=== PATIENT | male | born 1990 | race Caucasian/White ===

== ENCOUNTER 2024-12-17 11:07 | Inpatient (IN) | payer OTHER, SELFPAY ==
[2024-12-17 11:15] VITALS: BP 142/80; PULSE 110; O2SAT 98; BMI 26.6
[2024-12-17 11:21] VITALS: BP 141/90; PULSE 91; RESP 16; TEMP 36.6; O2SAT 98
--- NOTE | 2024-12-17 11:37 | ED_ITS ---
HPI - Psych General Chief Complaint: Psychiatric Symptoms Stated Complaint: LEG AND FOOT PAIN Time Seen by Provider: 12/17/24 11:14 Source: patient and EMS Mode of arrival: ambulatory Limitations: no limitations History of Present Illness ED Provider: CAITLIN Alves HPI Narrative: This is a 34-year-old male past medical history significant for homelessness, substance abuse, depression recently discharged from a facility out near [place] on a [address] 12 for a month he tells me. He tells me that they sent him via Lyft to [facility] here in [place] however they did not let him inside because I was not a staff member. He tells me he is suicidal with no particular plan. No homicidal ideation. Denies visual, auditory and tactile hallucinations. Denies medical complaints at this time. Related Data Home Medications ?Medication ?Instructions ?Recorded ?Confirmed methadone 10 mg/mL oral 100 mg PO DAILY 12/17/24 concentrate (Methadone Intensol) Allergies Allergy/AdvReac Type Severity Reaction Status Date / Time bupropion (From Wellbutrin) AdvReac Agitated Verified 12/17/24 11:20 olanzapine (From Zyprexa) AdvReac Agitated Verified 12/17/24 11:20 Review of Systems 2 Review of Systems: Yes all other systems are reviewed and are negative [facility] Past Medical History Attestation statement: The following information was validated with the patient. Source: old records reviewed and nursing notes reviewed Social History Social History Smoked in Last 30 Days: Yes Substance Use Type: Heroin Advance Directives: No Advance Directives Information Provided: No Physical Exam 2 Exam: Exam: Appearance: Alert.? Oriented X3.? No acute distress.? Head: Normocephalic, atraumatic, no step-offs or deformities Eyes: Pupils equal, round and reactive to light.? ENT: Pharynx normal.? Neck: Normal inspection.? Neck supple.? CVS: Normal heart rate and rhythm.? Pulses normal.? Respiratory: No respiratory distress.? Breath sounds normal.? Abdomen: Soft and nontender.? Skin: Skin warm and dry.? Normal skin color.? Normal skin turgor.? Extremities: No lower extremity edema.? No calf ttp. 5/5 strength to bilateral upper and lower extremities Back: No midline tenderness, no C-spine tenderness, full range of motion, no CVA tenderness bilaterally Neuro: Oriented X 3.? No motor deficit.? No sensory deficit. CN 2-12 intact Vital Signs: Vital Signs: Last Vital Signs Temp 98.7 F 12/19/24 08:30 Pulse 62 12/19/24 08:30 Resp 12 12/19/24 08:30 BP 109/56 L 12/19/24 08:30 Pulse Ox 99 12/19/24 08:30 O2 Del Method Room Air 12/19/24 08:30 BMI result Body Mass Index 26.6 vss Course Reevaluation(s) Reevaluation #1: CBC with normocytic anemia. Chemistry with mild elevation in BUN and creatinine will offer him p.o. intake no indication for IV at this time. Normal urinary output. Ethanol negative. Urine toxicology and UA pending. At this time patient will be placed into physician observation to allow more time to be evaluated by the behavioral health team at time observation was started patient common cooperative no acute distress will continue Time: 15:51 Reevaluation #2: Time: 16:32 Date: 12/17/24 Provider: Jesus Valles DO Patient in physician observation for psychiatric evaluation.? Patient is in bed search status. Time: 16:31 Reevaluation #3: DR. Garcia's progress note 12/18/2024 9:00. VSS, calm, continue with section 12, bed search is underway, will continue with physician observation. Time: 08:55 Date: 12/19/24 Provider: CAITLIN Dubose Patient in physician observation for psychiatric evaluation.? No acute events reported overnight. No current complaints. VS stable.? Patient is in bed search status. Will continue to monitor. Time: 09:00 Additional Reevaluation(s): Time: 14:58 Date: 12/19/24 Provider: Caro Tijerina DO Physician observation ended at 258pm.Patient to be admitted as inpatient to psychiatry. Medications Administered Generic Name Dose Route Start Last Admin Trade Name Freq PRN Reason Stop Dose Admin Acetaminophen 975 mg 12/18/24 17:43 12/19/24 12:10 Acetaminophen 325 Mg Tablet PO 975 mg RQ6H PRN Administration Pain, Moderate(Pain Scale 4-6) Docusate Sodium 100 mg 12/18/24 04:54 12/19/24 05:31 Docusate Sodium 100 Mg Capsule PO 100 mg BID PRN Administration Constipation Senna 8.6 mg 12/18/24 04:54 12/19/24 05:31 Sennosides 8.6 Mg Tablet PO 8.6 mg DAILY PRN Administration Constipation Discontinued Medications Generic Name Dose Route Start Last Admin Trade Name Chan PRN Reason Stop Dose Admin Acetaminophen 975 mg 12/18/24 00:37 12/18/24 00:39 Acetaminophen 325 Mg Tablet PO 12/18/24 00:38 975 mg ONCE ONE Administration Acetaminophen 650 mg 12/18/24 11:31 12/18/24 12:30 Acetaminophen 325 Mg Tablet PO 12/18/24 11:32 650 mg ONCE ONE Administration Diazepam 5 mg 12/18/24 04:54 12/18/24 05:15 Diazepam 5 Mg Tablet PO 12/18/24 04:55 5 mg ONCE ONE Administration Melatonin 6 mg 12/19/24 02:36 12/19/24 02:50 Melatonin 3 Mg Tablet PO 12/19/24 02:37 6 mg ONCE ONE Administration Methadone HCl 100 mg 12/18/24 07:09 12/18/24 07:38 Methadone Hcl 20 Mg/2 Ml Oral.Conc PO 12/18/24 07:10 100 mg ONCE ONE Administration Methadone HCl 100 mg 12/19/24 08:50 12/19/24 09:57 Methadone Hcl 20 Mg/2 Ml Oral.Conc PO 12/19/24 08:51 100 mg ONCE ONE Administration Medical Decision Making Medical Decision Making [facility] Narrative: 1139 34-year-old male presents with suicidal ideation recently discharged from an inpatient program out near [place]. He tells me he is here for correction and food . on exam patient with a very bizarre affect. Otherwise benign history and physical exam concerning for acute psychiatric issue such as psychosis drug-induced psychosis, depression. Unlikely metabolic derangements although will rule out. No signs of trauma to head, neck, chest, abdomen or pelvis plan medical clearance evaluation by behavioral health Differential Diagnosis Differential Diagnoses: The differential diagnosis associated with the presentation includes ( history and physical exam concerning for acute psychiatric issue such as psychosis drug-induced psychosis, depression. Unlikely metabolic derangements although will rule out. No signs of trauma to head, neck, chest, abdomen or pelvis) Admission/Observation Consideration of admission/observation: Escalation of care including admission/observation considered Consult Healthcare Provider Management of the patient was discussed with: Behavioral Health Provider Lab Data [facility] Lab Attestation statement: I reviewed the patient's lab results. 12/17/24 13:26 12/17/24 13:26 Labs: Lab Results 12/17/24 12/17/24 Range/Units 13:26 15:40 WBC 9.6 (4.8-10.8) X10*3/uL RBC 4.62 (4.60-5.80) X10*6/uL Hgb 13.5 L (14.0-18.0) g/dl Hct 39.8 L (42.0-52.0) % MCV 86.1 (80.0-98.0) fL MCH 29.2 (27.0-33.0) pg MCHC 33.9 (31.0-36.0) g/dl RDW 13.0 (11.0-16.0) % Plt Count 215 (160-400) X10*3/uL MPV 10.1 (9.4-12.4) fL Immature Gran % (Auto) 0.4 (0.0-0.4) % Neut % (Auto) 85.1 H (45-73) % Lymph % (Auto) 8.9 L (20-40) % [place] % (Auto) 5.4 (2-11) % Eos % (Auto) 0.0 (0-4) % Baso % (Auto) 0.2 (0-2) % Lymph # (Auto) 0.9 L (1.2-4.9) X10*3/uL [place] # (Auto) 0.5 (0.1-1.2) X10*3/uL Eos # (Auto) 0.0 (0.0-0.4) X10*3/uL Baso # (Auto) 0.0 (0.0-0.2) X10*3/uL Abs Immat Gran (auto) 0.04 H (0.00-0.03) X10*3/uL Absolute Neuts (auto) 8.1 (2.0-8.3) x10*3/uL Absolute Nucleated RBC 0.000 (0.0-0.012) X10*3/uL Nucleated RBC % (auto) 0.0 (0.0-0.2) /100WBC Sodium 140 (135-145) mmol/L Potassium 4.3 (3.3-5.1) mmol/L Chloride 104 (96-108) mmol/L Carbon Dioxide 24 (22-29) mmol/L Anion Gap 16 (12-20) BUN 20 H (9-16) mg/dL Creatinine 1.02 (0.5-1.4) mg/dL Estim Creat Clear Calc 92.0 Estimated GFR > 60 Random Glucose 161 H (60-115) mg/dL Calcium 9.9 (8.4-10.2) mg/dL Magnesium 2.4 (1.6-2.6) mg/dL Total Bilirubin 0.7 (0.0-1.0) mg/dL AST 29 (5-37) U/L ALT 35 (0-40) U/L Alkaline Phosphatase 61 (39-117) U/L Total Creatine Kinase 161 (38-174) U/L Total Protein 7.6 (6.5-8.0) g/dL Albumin 5.0 (3.5-5.0) g/dL Hold Yellow Top See Note Urine Color Yellow Urine Appearance Clear Urine pH 6.0 (5.0-9.0) Ur Specific [place] >= 1.030 H (1.005-1.025) Urine Protein Negative (Neg-Trace) mg/dL Urine Glucose (UA) Negative (Negative) mg/dL Urine Ketones Trace (Negative) mg/dL Urine Blood Negative (Negative) Urine Nitrite Negative (Negative) Ur Leukocyte Esterase Negative (Negative) Urine Opiates Screen Not Detected (Not Detect) Ur Buprenorphine Scrn Not Detected (Not Detect) ng/mL Ur Oxycodone Screen Not Detected (Not Detect) ng/mL Urine Methadone Screen Positive H (Not Detect) ng/mL Urine Fentanyl Screen Not Detected (Not Detect) Ur Barbiturates Screen Not Detected (Not Detect) Ur Phencyclidine Scrn Not Detected (Not Detect) Ur Amphetamines Screen Not Detected (Not Detect) U Benzodiazepines Scrn Not Detected (Not Detect) Urine Cocaine Screen Not Detected (Not Detect) U Marijuana (THC) Screen Not Detected (Not Detect) Ethyl Alcohol < 10 mg/dL Critical Care Time Critical Care Time Critical Care Time: No Discharge Plan Discharge Clinical Impression: Suicidal ideation, Depression, Acute psychosis Patient Disposition: Admitted As Inpatient Interventions: [place]-Suicide Risk Severity Scale Last Done: 12/18/24 11:21
--- NOTE | 2024-12-17 11:41 | PC.NURSE ---
Patient presents from a month long stay at a section 12 facility near [place]. Patient presented at [facility] and was not allowed in as he was not a staff member . Requesting health care, a residence and food at this time. stated SI with no plan. Patients with bizarre behavior including speaking with a Hannah Brogue although grew up in [place]. Alert, oriented and cooperative. Lungs clear bilat. Respirations even and non-labored. Abdomen soft, non-tender with positive bowel sounds. Positive pedal pulses with no edema. Changed in psych safe clothing and belongings removed and secured. Patient informed regarding plan of care.
--- NOTE | 2024-12-17 12:48 | MHC.EDTECH ---
Patient in room, self dialoguing and occasionally laughing.
--- NOTE | 2024-12-17 13:18 | PC.NURSE ---
Patient is talking to himself, appears to be responding to internal stimuli. Patient is swearing but not combative with staff. This RN assumed care of this patient around 12pm today. Plan to draw labs and collect urine specimen. Awaiting CARE team evaluation.
[2024-12-17 13:42] LABS: MANUAL DIFF FLAG NO
[2024-12-17 13:52] LABS: Hematocrit 39.8 % (42.0-52.0); Hemoglobin 13.5 g/dl (14.0-18.0); Imm Gran Abs Auto 0.04 X10*3/uL (0.00-0.03); Imm Gran Pct Auto 0.4 % (0.0-0.4); Lymphocytes Absolute Auto 0.9 X10*3/uL (1.2-4.9); Mean Corpuscular HGB Conc 33.9 g/dl (31.0-36.0); Mean Corpuscular Hemoglobin 29.2 pg (27.0-33.0); Mean Corpuscular Volume 86.1 fL (80.0-98.0); NRBC Abs Auto 0.000 X10*3/uL (0.0-0.012); NRBC Pct Auto 0.0 /100WBC (0.0-0.2); Platelet Count 215 X10*3/uL (160-400); Red Blood Count 4.62 X10*6/uL (4.60-5.80); White Blood Count 9.6 X10*3/uL (4.8-10.8)
[2024-12-17 14:10] LABS: Alanine Aminotransferase 35 U/L (0-40); Albumin Level 5.0 g/dL (3.5-5.0); Alkaline Phosphatase 61 U/L (39-117); Anion Gap 16 (12-20); Aspartate Amino Transferase 29 U/L (5-37); Blood Urea Nitrogen 20 mg/dL (9-16); Calcium 9.9 mg/dL (8.4-10.2); Carbon Dioxide 24 mmol/L (22-29); Chloride 104 mmol/L (96-108); Creatinine Clr Calc Pharmacy 92.0; Estimated Glomerular Filt Rate > 60; Magnesium 2.4 mg/dL (1.6-2.6); Potassium 4.3 mmol/L (3.3-5.1); Sodium 140 mmol/L (135-145); Total Protein 7.6 g/dL (6.5-8.0)
--- NOTE | 2024-12-17 15:03 | PC.NURSE ---
Patient is speaking with an Bulgarian (or possibly Cameroonian?) accent. Asked the patient about preferred/used pharmacy, to which he stated all of the [facility] pharmacies . Patient was requesting Methadone. Confirmed most recent 2 facilities & dosing, faxed to pharmacy. [facility]: , spoke with Minoo. Last dose 12/16/2024 @ 11AM, Methadone 100mg. Minoo stated that typically, Elvira gets Methadone 50mg twice a day, but because he was discharged yesterday at 11am, he got Methadone 100mg. Our policy is to give Methadone twice a day . Clinic prior to this was [facility], [place], [place]: . Last dose at this clinic was on 10/28/2024, Methadone 90mg plus an exception of an additional 10mg . Both confirmations were faxed to pharmacy. Spoke with pharmacist Eloisa Osman to assist with medication reconcilation due to unknown whereabouts and difficult to obtain list from the patient.
--- NOTE | 2024-12-17 15:06 | HE.PHANOTE ---
RE: METHADONE DOSING Last dose of methadone 100 mg was given on 12/16/24 @1100 at [facility] Minoo at clinic.
[2024-12-17 15:44] VITALS: BP 134/81; PULSE 92; RESP 16; TEMP 36.7; O2SAT 97
[2024-12-17 15:52] LABS: Appearance Urine Clear; Glucose Urine UA Negative (Negative); PH 6.0 (5.0-9.0); Specific Gravity - Urine >= 1.030 (1.005-1.025)
[2024-12-17 16:02] LABS: Cannabinoid Screen Urine Not Detected (Not Detect)
--- NOTE | 2024-12-17 17:12 | PC.NURSE ---
Called [facility], spoke with pharmacist (Meera). [facility] reports no medications picked up since March 2023. There have been multiple prescriptions ordered/sent to [facility] throughout 2023 and early 2024, but none of them have been picked up from [facility] by the patient. CARE team aware of this. Will attempt to contact [facility] again to obtain most recent medication list.
--- NOTE | 2024-12-18 01:03 | PC.NURSE ---
Report received and care assumed at 2300. The pt has since been out of his room periodically, remains calm and cooperative, well appearing and without distress noted. He is noted to speak with an cameroonian accent and presented to the nurses station to report the presence of a generalized headache and requested tylenol to assist with this. Pt medicated per his request, given a drink and returned to his room without issue.
--- NOTE | 2024-12-18 05:02 | PC.NURSE ---
patient requesting stool softener and Valium at this time. multiple trips to the bathroom, denies any distress. ambulates indepedently with steady gait.
--- NOTE | 2024-12-18 07:28 | PC.NURSE ---
Patient is a 34-year-old homeless male patient who presented dressed in hospital garb. Evaluated by the CARE team and noted eye contact is intermittent and he does appear to be responding to internal stimuli, often making odd facial expressions and appearing preoccupied. Mood is reported to be depressed and he presents with flat affect and bizarre behavior. He speaks in an Greenlandic brogue accent althought not from [place] but has resided in [place] his entire life. Throughout the assessment his thought process appears to be flooded with looseness of association, punning, and word salad. He also appears to be thought-blocking at times as his speech is halted periodically throughout assessment. Patient endorses SI with no clear plan/intent. He denies being homicidal but states he has genocidal thoughts and holocaustic thoughts His insight and judgment are significantly impaired. He endorses auditory hallucinations. Patient is sl agitated and disheveled this morning requesting his methadone which has been verified. Continues to speak in a Greenlandic brogue. No distress noted at this time. Pending an adult bed search. [ End ]
[2024-12-18] MEDS: methADONE HCl 20 MG/2 ML ORAL.CONC 100 MG PO (07:38)
[2024-12-18 08:35] VITALS: BP 149/96; PULSE 86; RESP 16; TEMP 37.2; O2SAT 96
--- NOTE | 2024-12-18 10:30 | PC.NURSE ---
Patient states was on valium and adderrall prescribed By Michelle Lindquist ([phone]) prior. Patient was incarcerated for the several years and has not been on these medications while in half-way.
--- NOTE | 2024-12-18 10:51 | PC.NURSE ---
In reviewing his discharge paperwork from [facility], patients discharge medications was fish oil and methadone.
[2024-12-18 14:54] VITALS: BP 146/94; PULSE 76; RESP 16; TEMP 36.7; O2SAT 99
--- NOTE | 2024-12-19 03:31 | PC.NURSE ---
Pt is on daily Methadone 100mg. Last dose given was 12/18/24 at 0738. There are no orders in the MAR moving forward. [place] text sent to Dr. Hogue who states the morning team will take care of this med. Morning nurse will be made aware to follow up on morning dose with the morning team.
--- NOTE | 2024-12-19 06:10 | PC.NURSE ---
Pt slept most of the night. Up and awake a few times and asked for sleeping medication. Melatonin administered as per JUL. Pt then returned to sleep and was up and awake around 0400. Remained calm and cooperative with staff and making needs known in an appropriate manner. Pt noted to be speaking curse words and seemed upset to himself while sitting in the common area in front of the TV. While in the bathroom this morning pt reports being constipated. Medicated for constipation as per JUL. Monitoring is ongoing.
--- NOTE | 2024-12-19 07:48 | PC.NURSE ---
Assumed care of patient at 0645, patient appears to be in no apparent distress this am, sleeping, respirations even and unlabored. Continue plan of care for IPLOC
[2024-12-19 08:30] VITALS: BP 109/56; PULSE 62; RESP 12; TEMP 37.1; O2SAT 99
--- NOTE | 2024-12-19 09:44 | PHA.MEDREC ---
Addendum entered by Johnny Reynaga RPh 12/19/24 09:54: Reviewed Original Note: Pharmacy Consult ? Medication Reconciliation Pharmacy has Reviewed the medication reconciliation done by nursing.
[2024-12-19] MEDS: methADONE HCl 20 MG/2 ML ORAL.CONC 100 MG PO (09:57)
[2024-12-19 16:39] VITALS: BP 140/94; PULSE 80; RESP 18; TEMP 36.4; O2SAT 99
[2024-12-19 16:41] VITALS: BMI 26.8
--- NOTE | 2024-12-19 16:56 | PC.ADMIT ---
Nursing admission note: 34 year old male DX: Unspecified psychosis, Unspecified depressive disorder. Referred for treatment by CARE team. Signed conditional voluntary for admission. Patient was brought in by ambulance by [facility] due to primary c/o leg pain due to walking around all evening. Patient discharged from [facility] yesterday. He reports he was brought to [facility] in [place] however there was no bed for him there. Patient engaged easily. A+O x3, disoriented to date. Calm and cooperative during admission process. Endorses anxiety, denies depression reports more oppressed than depressed . Reports +SI, denies intent at this time. Agrees to engage staff if feeling he will act on ideation. Reports he has longed for . Historically has cut wrist, not to , ingested Morphine and experienced thoughts to hang and break me neck . Reports feeling aggravated and uncomfortable much of the time . Reports low energy , feeling weary , helpless at times. States he is not properly stimulated .Denies A/V hallucinations. Responds to questions although appears distracted at times with latency in response, loose associations. Speaks is Polish baroque, vacillating with Hebrew and Latvian. Speech rapid at times. Reports he is fluent in 3 languages. Patient disheveled, dressed in hospital attire. Not malodorous. Good eye contact during admission assessment, odd posture at times, standing on 1 foot intermittently. Reports poor sleep, utilizes Melatonin with + effects. Denies appetite disturbances. Reports recently serving 18 month sentence, released after 15 month. TOX screen positive for Methadone, currently receiving MAT. Patient is smoker, smokes approx 2 cigarettes daily. Denies alcohol use. Currently homeless. Reports history of heart attack 3 years ago, has rapid, shallow, flat heart beat. Needed 'blood transfusion at time of heart attack . Placed on unit safety checks. See nursing assessment/crisis evaluation for further details.
[2024-12-19 20:00] VITALS: BP 110/53; PULSE 62; RESP 13; TEMP 36.8; O2SAT 98
--- NOTE | 2024-12-20 07:01 | PC.NURSE ---
Dr. Jennings was notified of issue with Tylenol that was given PO prn.
[2024-12-20] MEDS: methADONE HCl 20 MG/2 ML ORAL.CONC 100 MG PO (07:57)
[2024-12-20 08:30] LABS: Hemoglobin A1C 115.3474 umol/L; Total Hemoglobin (HGBA1C) 3764.1607 umol/L
[2024-12-20 08:34] LABS: Alanine Aminotransferase 33 U/L (0-40); Albumin Level 4.9 g/dL (3.5-5.0); Alkaline Phosphatase 64 U/L (39-117); Anion Gap 13 (12-20); Aspartate Amino Transferase 23 U/L (5-37); Blood Urea Nitrogen 20 mg/dL (9-16); Calcium 9.5 mg/dL (8.4-10.2); Carbon Dioxide 25 mmol/L (22-29); Chloride 106 mmol/L (96-108); Cholesterol 235 mg/dL (<200); Creatinine Clr Calc Pharmacy 121.9; Estimated Glomerular Filt Rate > 60; HDL Cholesterol 47 mg/dL (>40); Potassium 4.3 mmol/L (3.3-5.1); Sodium 140 mmol/L (135-145); Total Protein 7.5 g/dL (6.5-8.0); Triglycerides 124 mg/dL (<150)
[2024-12-20 08:49] LABS: Free T4 (Free Thyroxine) 1.06 ng/dL (0.71-1.85); Thyroid Stimulating Hormone 0.51 uIU/mL (0.32-4.0)
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
[2024-12-20] MEDS: Milk of Magnesia 30 ML ORAL.SUSP PO (17:51)
[2024-12-20] MEDS: Magnesium Hydrox/Alum Hydrox 30 ML ORAL.SUSP PO (17:51)
[2024-12-20 20:00] VITALS: BP 133/73; PULSE 82; RESP 16; TEMP 36.8; O2SAT 97
[2024-12-21 08:00] VITALS: BP 110/63; PULSE 76; RESP 18; TEMP 36.5; O2SAT 98
[2024-12-21] MEDS: methADONE HCl 20 MG/2 ML ORAL.CONC 100 MG PO (08:03)
--- NOTE | 2024-12-21 14:46 | P.PNPSI_ITS ---
Subjective Subjective Date of Service: 12/21/24 Reason For Visit: psychosis Subjective Notes: Conditional Voluntary Interim History: Keeping to self. attending groups. observed responding to internal stimuli. When meeting with T/W, pt speaks with various accents (Grenadian, Bahraini, Belgian); when asked where he is originally from, pt stated, [place] . Pt proceeded to make various sounds. Patient denies any side effects from medications. He reports sleeping well. denies SI/HI/VH/AH. Continue current tx plan. Medication Compliance: Yes Side effects from medications: No Attending Groups: Yes Mental Status Exam Mental Status Exam Patient Appearance: Disheveled Patient Orientation: Person, Place, Time and Situation Level of Consciousness: Awake Patient Behavior: Guarded and Cooperative Mood Description: Anxious Affect Description: Constricted Ability to Follow Directions: Good Speech Pattern: Mumbled and Poor Articulation Hallucinations: Auditory Thought Process: Disoriented Thought Content: positive for Circumstantial Diagnostics Vital Signs (24Hr): Vital Signs - 24 hr 12/20/24 20:00 12/21/24 08:00 Temperature 98.2 F 97.7 F Pulse Rate 82 76 Respiratory Rate 16 18 Blood Pressure 133/73 110/63 Pulse Oximetry 97 98 Oxygen Delivery Method Room Air Room Air BMI result Body Mass Index 26.8 Labs 12/17/24 13:26 12/20/24 07:53 Labs: Laboratory Results - last 48 hr 12/20/24 07:53 Sodium 140 Potassium 4.3 Chloride 106 Carbon Dioxide 25 Anion Gap 13 BUN 20 H Creatinine 0.77 Estim Creat Clear Calc 121.9 Estimated GFR > 60 Random Glucose 82 Estimat Average Glucose 97 Hemoglobin A1c % 5.0 Calcium 9.5 Total Bilirubin 0.2 AST 23 ALT 33 Alkaline Phosphatase 64 Total Protein 7.5 Albumin 4.9 Triglycerides 124 Cholesterol 235 H LDL Cholesterol, Calc 164 H HDL Cholesterol 47 TSH 0.51 Free T4 1.06 Medications Medications Current Medications Acetaminophen (Acetaminophen 325 Mg Tablet) 975 mg PO RQ6H PRN PRN Reason: Pain, Moderate(Pain Scale 4-6) Last Admin: 12/21/24 09:10 Dose: 975 mg Al Hydroxide/Mg Hydroxide (Magnesium Hydrox/Alum Hydrox 30 Ml Oral.Susp) 30 ml PO Q6H PRN PRN Reason: Heartburn/Nausea Last Admin: 12/20/24 17:51 Dose: 30 ml Docusate Sodium (Docusate Sodium 100 Mg Capsule) 100 mg PO BID [facility] Last Admin: 12/21/24 08:37 Dose: 100 mg Hydroxyzine HCl (Hydroxyzine Hcl 25 Mg Tablet) 25 mg PO Q6H PRN PRN Reason: mild anxiety Magnesium Hydroxide (Milk Of Magnesia 30 Ml Oral.Susp) 30 ml PO DAILY PRN PRN Reason: Constipation Last Admin: 12/20/24 17:51 Dose: 30 ml Melatonin (Melatonin 3 Mg Tablet) 6 mg PO BEDTIME [facility] Last Admin: 12/20/24 20:17 Dose: 6 mg Methadone HCl (Methadone Hcl 20 Mg/2 Ml Oral.Conc) 100 mg PO DAILY@0800 [facility] Last Admin: 12/21/24 08:03 Dose: 100 mg Nicotine (Nicotine 21 Mg Patch.Td24) 21 mg TRANSDERMA DAILY PRN PRN Reason: nicotine craving Nicotine Polacrilex (Nicotine Polacrilex 2 Mg Gum) 2 mg BUCCAL Q2H PRN PRN Reason: Nicotine Cravings Risperidone (Risperidone 1 Mg Tablet) 1 mg PO BID [facility] Last Admin: 12/21/24 08:37 Dose: 1 mg Senna (Sennosides 8.6 Mg Tablet) 8.6 mg PO DAILY PRN PRN Reason: Constipation Last Admin: 12/19/24 05:31 Dose: 8.6 mg Trazodone HCl (Trazodone Hcl 50 Mg Tablet) 50 mg PO BEDTIME MRX1 PRN PRN Reason: Insomnia Allergies Allergies Allergy/AdvReac Type Severity Reaction Status Date / Time bupropion (From Wellbutrin) AdvReac Agitated Verified 12/17/24 11:20 haloperidol (From Haldol) AdvReac Muscle Verified 12/19/24 23:14 cramps olanzapine (From Zyprexa) AdvReac Agitated Verified 12/17/24 11:20 Assessment & Plan Assessment & Plan (1) Acute psychosis: Status: Acute Code(s): F23 - Brief psychotic disorder (2) Suicidal ideation: Status: Acute Code(s): R45.851 - Suicidal ideations Plan HPI: Patient is a 34 years old male who was BIBA by [facility] due to primary complain about leg pain due to walking around or evening. He was discharged from [facility] a couple of days ago he was discharged by Ellen to a [facility] program in [place]. However does not know beds available when he was around. Reported that he was admitted to this hospital for 1 month. He presents with bizarre behavior, and appears to be responding to internal stimuli, often making odd facial expressions and speaking in Hannah tongue, word salad. Formulation/clinical reasoning: Patient is not stable even though was admitted to psychiatric hospital for 1 month prior to discharge 2 days ago, appeared to responding to internal stimuli, self dialogue, word salad, disorganized, mumbling to self. Does not make sense at times, however able to follow direction, and answer the questions appropriately if prompted. He appears to be resist to medication. He is is a poor historian. Not able to do collateral at this time as no family involved in his care, no outpatient psychiatrist, therapist. Patient will be benefit in restrictive environment for his own safety, monitor for mental status, monitor for psychosis. Start on medication- antipsychotic medication and refer patient to outpatient psychiatry services for aftercare. Hospital course: 12/19 and 12/20: Continued to be psychotic, word salad with bizarre behavior, disorganized thoughts. Discontinue Haldol his response he has a stiff neck taking this medication. We will try risperidone 1 mg twice a day to target the psychotic symptoms with plan to titrate up if he is compliant. Melatonin 6 mg at bedtime for insomnia Hydroxyzine and trazodone as needed for anxiety and insomnia. We will not provide any stimulants at this time. He has been asking at least twice for Ritalin or Adderall. 12/21: Keeping to self. attending groups. observed responding to internal stimuli. When meeting with T/W, pt speaks with various accents (Grenadian, Bahraini, Belgian); when asked where he is originally from, pt stated, [place] . Pt proceeded to make various sounds. Patient denies any side effects from medications. He reports sleeping well. denies SI/HI/VH/AH. Continue current tx plan. Plan Patient on 15 minute checks for safety. Admitted to M3. CV. Work with treatment team to do collateral and for CSS/CCS/usp if possible for aftercare. Review lipid profile: Noted cholesterol and LDL elevated. Touch base with hospitalist to see patient needs to start on medication. Patient educated on: diagnosis, medication risk/benefits and therapeutic strategies Reason for continued inpatient stay Substantial Risk for: med/psych decompensation Time Spent With Patient Time: Total time managing care of this patient today _20___ minutes.
[2024-12-21 19:12] VITALS: BP 134/73; PULSE 84; RESP 16; TEMP 36.4; O2SAT 96
[2024-12-21] MEDS: Milk of Magnesia 30 ML ORAL.SUSP PO (21:27)
[2024-12-21] MEDS: Magnesium Hydrox/Alum Hydrox 30 ML ORAL.SUSP PO (21:27)
--- NOTE | 2024-12-22 | ECG_ITS ---
Test Reason : med start Blood Pressure : */* mmHG Vent. Rate : 73 BPM Atrial Rate : 73 BPM P-R Int : 128 ms QRS Dur : 90 ms QT Int : 374 ms P-R-T Axes : 63 19 33 degrees QTcB Int : 412 ms Normal sinus rhythm Normal ECG No previous ECGs available Referred By: Rica Choi Electronically Signed By: DASHAWN PYLE MD
[2024-12-22 07:00] VITALS: BMI 30.2
[2024-12-22 07:53] VITALS: BP 117/53; PULSE 66; RESP 16; TEMP 36.3; O2SAT 97
[2024-12-22] MEDS: methADONE HCl 20 MG/2 ML ORAL.CONC 100 MG PO (08:05)
--- NOTE | 2024-12-22 15:32 | P.PNPSI_ITS ---
Subjective Subjective Date of Service: 12/22/24 Reason For Visit: psychosis Subjective Notes: Conditional Voluntary Healthcare Proxy: No Guardianship: No Medical Problems Affecting Mental Status: No Interim History: Medical record and nursing notes reviewed; case discussed during rounds with team/nursing staff, and met with patient for supportive therapy/psychoeducation, as well as medication management. Patient slept well, compliant with medication. Denies side effect. Reported that he take Tylenol to get his blood flow to his heart better and for pain on his feet. Reported that he had blood transfusion a couple years ago. Not able to confirm at this time, but due to the fact that he is started on risperidone, I ordered the EKG which was within normal limit. His speech is much clear. Not using different languages during one-to-one assessment. Able to answer the other questions in clear straight Hebrew. Patient asked for Ritalin which he has been asking either Ritalin or Adderall daily. Thoughts are more organized, visible at times, intermittently attended groups. Discussed with him regarding risperidone dose to be increased, patient is receptive. Medication Compliance: Yes Side effects from medications: No Attending Groups: Intermittent Review of Systems Acute medical concerns: No Medical Review of Systems: unchanged Review of Systems Review of Systems Constitutional: Denies fatigue and Denies fever(s) Cardiovascular: Denies chest pain and Denies dyspnea Respiratory: Denies dyspnea Gastrointestinal: Denies abdominal pain Psychiatric: denies suicidal ideation Endocrine: Denies fatigue Yes all other systems are reviewed and are negative Mental Status Exam Mental Status Exam Narrative: Patient is alert and oriented; behavior is cooperative; patient is not in distress; dressed in casual attire with kempt hair-messy look but adequate hygiene; mood is described as good and affect congruent; eye contact appropriate; Speech is soft, normal rate, volume and prosody; no psychomotor agitation but observed psychomotor retardation present; thought process is less disorganized and goal directed; Thought content is WNL, mostly pertinent to relevant topics but appears to be psychotic, improve in self dialogue mumbling. Denies SI/SIB/HI Patient's insight and judgment poor/impaired. Diagnostics Vital Signs (24Hr): Vital Signs - 24 hr 12/21/24 19:12 12/22/24 07:53 Temperature 97.5 F 97.4 F Pulse Rate 84 66 Respiratory Rate 16 16 Blood Pressure 134/73 117/53 L Pulse Oximetry 96 97 Oxygen Delivery Method Room Air Room Air BMI result Body Mass Index 30.2 Labs 12/17/24 13:26 12/20/24 07:53 Medications Medications Current Medications Acetaminophen (Acetaminophen 325 Mg Tablet) 975 mg PO RQ6H PRN PRN Reason: Pain, Moderate(Pain Scale 4-6) Last Admin: 12/22/24 10:45 Dose: 975 mg Al Hydroxide/Mg Hydroxide (Magnesium Hydrox/Alum Hydrox 30 Ml Oral.Susp) 30 ml PO Q6H PRN PRN Reason: Heartburn/Nausea Last Admin: 12/21/24 21:27 Dose: 30 ml Docusate Sodium (Docusate Sodium 100 Mg Capsule) 100 mg PO BID [facility] Last Admin: 12/22/24 08:05 Dose: 100 mg Hydroxyzine HCl (Hydroxyzine Hcl 25 Mg Tablet) 25 mg PO Q6H PRN PRN Reason: mild anxiety Magnesium Hydroxide (Milk Of Magnesia 30 Ml Oral.Susp) 30 ml PO DAILY PRN PRN Reason: Constipation Last Admin: 12/21/24 21:27 Dose: 30 ml Melatonin (Melatonin 3 Mg Tablet) 6 mg PO BEDTIME [facility] Last Admin: 12/21/24 20:31 Dose: 6 mg Methadone HCl (Methadone Hcl 20 Mg/2 Ml Oral.Conc) 100 mg PO DAILY@0800 [facility] Last Admin: 12/22/24 08:05 Dose: 100 mg Nicotine (Nicotine 21 Mg Patch.Td24) 21 mg TRANSDERMA DAILY PRN PRN Reason: nicotine craving Nicotine Polacrilex (Nicotine Polacrilex 2 Mg Gum) 2 mg BUCCAL Q2H PRN PRN Reason: Nicotine Cravings Risperidone (Risperidone 2 Mg Tablet) 2 mg PO BID [facility] Senna (Sennosides 8.6 Mg Tablet) 8.6 mg PO DAILY PRN PRN Reason: Constipation Last Admin: 12/21/24 21:27 Dose: 8.6 mg Trazodone HCl (Trazodone Hcl 50 Mg Tablet) 50 mg PO BEDTIME MRX1 PRN PRN Reason: Insomnia Allergies Allergies Allergy/AdvReac Type Severity Reaction Status Date / Time bupropion (From Wellbutrin) AdvReac Agitated Verified 12/17/24 11:20 haloperidol (From Haldol) AdvReac Muscle Verified 12/19/24 23:14 cramps olanzapine (From Zyprexa) AdvReac Agitated Verified 12/17/24 11:20 Assessment & Plan Assessment & Plan (1) Acute psychosis: Status: Acute Code(s): F23 - Brief psychotic disorder (2) Suicidal ideation: Status: Acute Code(s): R45.851 - Suicidal ideations Plan HPI: Patient is a 34 years old male who was BIBA by [facility] due to primary complain about leg pain due to walking around or evening. He was discharged from [facility] a couple of days ago he was discharged by [employer] to a [facility] program in [place]. However does not know beds available when he was around. Reported that he was admitted to this hospital for 1 month. He presents with bizarre behavior, and appears to be responding to internal stimuli, often making odd facial expressions and speaking in Portuguese tongue, word salad. Formulation/clinical reasoning: Patient is not stable even though was admitted to psychiatric hospital for 1 month prior to discharge 2 days ago, appeared to responding to internal stimuli, self dialogue, word salad, disorganized, mumbling to self. Does not make sense at times, however able to follow direction, and answer the questions appropriately if prompted. He appears to be resist to medication. He is is a poor historian. Not able to do collateral at this time as no family involved in his care, no outpatient psychiatrist, therapist. Patient will be benefit in restrictive environment for his own safety, monitor for mental status, monitor for psychosis. Start on medication- antipsychotic medication and refer patient to outpatient psychiatry services for aftercare. Hospital course: 12/19 and 12/20: Continued to be psychotic, word salad with bizarre behavior, disorganized thoughts. Discontinue Haldol his response he has a stiff neck taking this medication. We will try risperidone 1 mg twice a day to target the psychotic symptoms with plan to titrate up if he is compliant. Melatonin 6 mg at bedtime for insomnia Hydroxyzine and trazodone as needed for anxiety and insomnia. We will not provide any stimulants at this time. He has been asking at least twice for Ritalin or Adderall. 12/21: Keeping to self. attending groups. observed responding to internal stimuli. When meeting with T/W, pt speaks with various accents ([place]inean, Iranian, Albanian); when asked where he is originally from, pt stated, [place] . Pt proceeded to make various sounds. Patient denies any side effects from medications. He reports sleeping well. denies SI/HI/VH/AH. Continue current tx plan. 12/22/24: Patient slept well, compliant with medication. Denies side effect. Reported that he take Tylenol to get his blood flow to his heart better and for pain on his feet. Reported that he had blood transfusion a couple years ago. Not able to confirm at this time, but due to the fact that he is started on risperidone, I ordered the EKG which was within normal limit. His speech is much clear. Not using different languages during one-to-one assessment. Able to answer the other questions in clear straight Hebrew. Patient asked for Ritalin which he has been asking either Ritalin or Adderall daily. Thoughts are more organized, visible at times, intermittently attended groups. Discussed with him regarding risperidone dose to be increased, patient is receptive. He appears to respond well with risperidone. Risperidone increased from 1 mg b.i.d. to 2 mg b.i.d. for psychosis/disorganizes thoughts. Plan Patient on 15 minute checks for safety. Admitted to [facility]. CV. Work with treatment team to do collateral and for CSS/CCS/residential if possible for aftercare. Review lipid profile: Noted cholesterol and LDL elevated. Touch base with hospitalist to see patient needs to start on medication. Educate patient healthy diet. Patient educated on: diagnosis, medication risk/benefits, substance abuse and therapeutic strategies Informed Consent: further education needed Reason for continued inpatient stay Substantial Risk for: med/psych decompensation Time Spent With Patient Time: Total time managing care of this patient today ____ minutes.
[2024-12-22 20:00] VITALS: BP 124/74; PULSE 88; RESP 16; TEMP 36.3; O2SAT 95
[2024-12-23 07:50] VITALS: BP 105/53; PULSE 62; RESP 14; TEMP 36.6; O2SAT 96
[2024-12-23] MEDS: methADONE HCl 20 MG/2 ML ORAL.CONC 100 MG PO (07:57)
--- NOTE | 2024-12-23 09:23 | P.PNPSI_ITS ---
Subjective Subjective Date of Service: 12/23/24 Reason For Visit: psychosis Subjective Notes: Conditional Voluntary Interim History: Active on unit. keeping to self. Patient reports feeling anxious and depressed; pt stated, I need help getting healthcare, employment and housing . Pt was educated he would have to obtain these outpatient; he expressed understanding. Patient reports sleeping well. denies SI/HI/VH/AH Continue current tx plan. Medication Compliance: Yes Side effects from medications: No Attending Groups: Yes Mental Status Exam Mental Status Exam Patient Appearance: Disheveled Patient Orientation: Person, Place, Time and Situation Level of Consciousness: Awake and Alert Patient Behavior: Guarded and Cooperative Mood Description: Calm Affect Description: Calm Ability to Follow Directions: Good Speech Pattern: Mumbled Hallucinations: None Delusions: Not Present Thought Process: Goal Oriented Thought Content: positive for Goal Oriented Diagnostics Vital Signs (24Hr): Vital Signs - 24 hr 12/22/24 20:00 12/23/24 07:50 Temperature 97.4 F 97.9 F Pulse Rate 88 62 Respiratory Rate 16 14 Blood Pressure 124/74 105/53 L Pulse Oximetry 95 96 Oxygen Delivery Method Room Air Room Air BMI result Body Mass Index 30.2 Labs 12/17/24 13:26 12/20/24 07:53 Medications Medications Current Medications Acetaminophen (Acetaminophen 325 Mg Tablet) 975 mg PO RQ6H PRN PRN Reason: Pain, Moderate(Pain Scale 4-6) Last Admin: 12/22/24 10:45 Dose: 975 mg Al Hydroxide/Mg Hydroxide (Magnesium Hydrox/Alum Hydrox 30 Ml Oral.Susp) 30 ml PO Q6H PRN PRN Reason: Heartburn/Nausea Last Admin: 12/21/24 21:27 Dose: 30 ml Docusate Sodium (Docusate Sodium 100 Mg Capsule) 100 mg PO BID [facility] Last Admin: 12/23/24 08:56 Dose: 100 mg Hydroxyzine HCl (Hydroxyzine Hcl 25 Mg Tablet) 25 mg PO Q6H PRN PRN Reason: mild anxiety Last Admin: 12/22/24 16:50 Dose: 25 mg Magnesium Hydroxide (Milk Of Magnesia 30 Ml Oral.Susp) 30 ml PO DAILY PRN PRN Reason: Constipation Last Admin: 12/21/24 21:27 Dose: 30 ml Melatonin (Melatonin 3 Mg Tablet) 6 mg PO BEDTIME [facility] Last Admin: 12/22/24 20:14 Dose: 6 mg Methadone HCl (Methadone Hcl 20 Mg/2 Ml Oral.Conc) 100 mg PO DAILY@0800 [facility] Last Admin: 12/23/24 07:57 Dose: 100 mg Nicotine (Nicotine 21 Mg Patch.Td24) 21 mg TRANSDERMA DAILY PRN PRN Reason: nicotine craving Nicotine Polacrilex (Nicotine Polacrilex 2 Mg Gum) 2 mg BUCCAL Q2H PRN PRN Reason: Nicotine Cravings Risperidone (Risperidone 2 Mg Tablet) 2 mg PO BID [facility] Last Admin: 12/23/24 08:56 Dose: 2 mg Senna (Sennosides 8.6 Mg Tablet) 8.6 mg PO DAILY PRN PRN Reason: Constipation Last Admin: 12/21/24 21:27 Dose: 8.6 mg Trazodone HCl (Trazodone Hcl 50 Mg Tablet) 50 mg PO BEDTIME MRX1 PRN PRN Reason: Insomnia Allergies Allergies Allergy/AdvReac Type Severity Reaction Status Date / Time bupropion (From Wellbutrin) AdvReac Agitated Verified 12/17/24 11:20 haloperidol (From Haldol) AdvReac Muscle Verified 12/19/24 23:14 cramps olanzapine (From Zyprexa) AdvReac Agitated Verified 12/17/24 11:20 Assessment & Plan Assessment & Plan (1) Acute psychosis: Status: Acute Code(s): F23 - Brief psychotic disorder (2) Suicidal ideation: Status: Acute Code(s): R45.851 - Suicidal ideations Plan HPI: Patient is a 34 years old male who was BIBA by [facility] due to primary complain about leg pain due to walking around or evening. He was discharged from [facility] a couple of days ago he was discharged by Ellen to a [facility] program in [place]. However does not know beds available when he was around. Reported that he was admitted to this hospital for 1 month. He presents with bizarre behavior, and appears to be responding to internal stimuli, often making odd facial expressions and speaking in [place] tongue, word salad. Formulation/clinical reasoning: Patient is not stable even though was admitted to psychiatric hospital for 1 month prior to discharge 2 days ago, appeared to responding to internal stimuli, self dialogue, word salad, disorganized, mumbling to self. Does not make sense at times, however able to follow direction, and answer the questions appropriately if prompted. He appears to be resist to medication. He is is a poor historian. Not able to do collateral at this time as no family involved in his care, no outpatient psychiatrist, therapist. Patient will be benefit in restrictive environment for his own safety, monitor for mental status, monitor for psychosis. Start on medication- antipsychotic medication and refer patient to outpatient psychiatry services for aftercare. Hospital course: 12/19 and 12/20: Continued to be psychotic, word salad with bizarre behavior, disorganized thoughts. Discontinue Haldol his response he has a stiff neck taking this medication. We will try risperidone 1 mg twice a day to target the psychotic symptoms with plan to titrate up if he is compliant. Melatonin 6 mg at bedtime for insomnia Hydroxyzine and trazodone as needed for anxiety and insomnia. We will not provide any stimulants at this time. He has been asking at least twice for Ritalin or Adderall. 12/21: Keeping to self. attending groups. observed responding to internal stimuli. When meeting with T/W, pt speaks with various accents (Eritrean, Palestinian, Telugu); when asked where he is originally from, pt stated, [place] . Pt proceeded to make various sounds. Patient denies any side effects from medications. He reports sleeping well. denies SI/HI/VH/AH. Continue current tx plan. 12/22/24: Patient slept well, compliant with medication. Denies side effect. Reported that he take Tylenol to get his blood flow to his heart better and for pain on his feet. Reported that he had blood transfusion a couple years ago. Not able to confirm at this time, but due to the fact that he is started on risperidone, I ordered the EKG which was within normal limit. His speech is much clear. Not using different languages during one-to-one assessment. Able to answer the other questions in clear straight Japanese. Patient asked for Ritalin which he has been asking either Ritalin or Adderall daily. Thoughts are more organized, visible at times, intermittently attended groups. Discussed with him regarding risperidone dose to be increased, patient is receptive. He appears to respond well with risperidone. Risperidone increased from 1 mg b.i.d. to 2 mg b.i.d. for psychosis/disorganizes thoughts. 12/23: Active on unit. keeping to self. Patient reports feeling anxious and depressed; pt stated, I need help getting healthcare, employment and housing . Pt was educated he would have to obtain these outpatient; he expressed understanding. Patient reports sleeping well. denies SI/HI/VH/AH Continue current tx plan. Plan Patient on 15 minute checks for safety. Admitted to M3. CV. Work with treatment team to do collateral and for CSS/CCS/fpc if possible for aftercare. Review lipid profile: Noted cholesterol and LDL elevated. Touch base with hospitalist to see patient needs to start on medication. Educate patient healthy diet. Patient educated on: diagnosis and medication risk/benefits Reason for continued inpatient stay Substantial Risk for: med/psych decompensation Time Spent With Patient Time: Total time managing care of this patient today _20___ minutes.
[2024-12-23 20:00] VITALS: BP 123/65; PULSE 76; RESP 16; TEMP 36.2; O2SAT 97
[2024-12-24 07:30] VITALS: BP 100/55; PULSE 65; RESP 18; TEMP 36.4; O2SAT 96
--- NOTE | 2024-12-24 07:54 | P.PNPSI_ITS ---
Subjective Subjective Date of Service: 12/24/24 Reason For Visit: psychosis Subjective Notes: Conditional Voluntary Interim History: engaged in groups. In the milieu. Reports main stressors or social security, financial stability and access to healthcare and having a mailing address. Feeling much better overall compared to when he was admitted as depression, energy levels and anxiety have significantly improved. Sleep okay. Was asking about Ritalin and redirected to discuss same with primary team after the weekend Medication Compliance: Yes Attending Groups: Yes Review of Systems Review of Systems unremarkable Mental Status Exam Mental Status Exam Narrative: Patient is alert and oriented; behavior is cooperative; patient is not in distress; dressed in casual attire with kempt hair-messy look but adequate hygiene; mood is described as good and affect congruent; eye contact appropriate; Speech is soft, normal rate, volume and prosody; no psychomotor agitation but observed psychomotor retardation present; thought process is less disorganized and goal directed; Thought content is WNL, no overt paranoia. Denies SI/SIB/HI Patient's insight and judgment improving. Diagnostics Vital Signs (24Hr): Vital Signs - 24 hr 12/23/24 20:00 Temperature 97.2 F Pulse Rate 76 Respiratory Rate 16 Blood Pressure 123/65 Pulse Oximetry 97 Oxygen Delivery Method Room Air BMI result Body Mass Index 30.2 Labs 12/17/24 13:26 12/20/24 07:53 Medications Medications Current Medications Acetaminophen (Acetaminophen 325 Mg Tablet) 975 mg PO RQ6H PRN PRN Reason: Pain, Moderate(Pain Scale 4-6) Last Admin: 12/23/24 10:23 Dose: 975 mg Al Hydroxide/Mg Hydroxide (Magnesium Hydrox/Alum Hydrox 30 Ml Oral.Susp) 30 ml PO Q6H PRN PRN Reason: Heartburn/Nausea Last Admin: 12/21/24 21:27 Dose: 30 ml Docusate Sodium (Docusate Sodium 100 Mg Capsule) 100 mg PO BID [facility] Last Admin: 12/23/24 21:09 Dose: 100 mg Hydroxyzine HCl (Hydroxyzine Hcl 25 Mg Tablet) 25 mg PO Q6H PRN PRN Reason: mild anxiety Last Admin: 12/23/24 14:37 Dose: 25 mg Magnesium Hydroxide (Milk Of Magnesia 30 Ml Oral.Susp) 30 ml PO DAILY PRN PRN Reason: Constipation Last Admin: 12/21/24 21:27 Dose: 30 ml Melatonin (Melatonin 3 Mg Tablet) 6 mg PO BEDTIME [facility] Last Admin: 12/23/24 21:08 Dose: 6 mg Methadone HCl (Methadone Hcl 20 Mg/2 Ml Oral.Conc) 100 mg PO DAILY@0800 [facility] Last Admin: 12/23/24 07:57 Dose: 100 mg Nicotine (Nicotine 21 Mg Patch.Td24) 21 mg TRANSDERMA DAILY PRN PRN Reason: nicotine craving Nicotine Polacrilex (Nicotine Polacrilex 2 Mg Gum) 2 mg BUCCAL Q2H PRN PRN Reason: Nicotine Cravings Risperidone (Risperidone 2 Mg Tablet) 2 mg PO BID [facility] Last Admin: 12/23/24 21:09 Dose: 2 mg Senna (Sennosides 8.6 Mg Tablet) 8.6 mg PO DAILY PRN PRN Reason: Constipation Last Admin: 12/21/24 21:27 Dose: 8.6 mg Trazodone HCl (Trazodone Hcl 50 Mg Tablet) 50 mg PO BEDTIME MRX1 PRN PRN Reason: Insomnia Allergies Allergies Allergy/AdvReac Type Severity Reaction Status Date / Time bupropion (From Wellbutrin) AdvReac Agitated Verified 12/17/24 11:20 haloperidol (From Haldol) AdvReac Muscle Verified 12/19/24 23:14 cramps olanzapine (From Zyprexa) AdvReac Agitated Verified 12/17/24 11:20 Assessment & Plan Assessment & Plan (1) Acute psychosis: Status: Acute Code(s): F23 - Brief psychotic disorder (2) Suicidal ideation: Status: Acute Code(s): R45.851 - Suicidal ideations Plan HPI: Patient is a 34 years old male who was BIBA by [facility] due to primary complain about leg pain due to walking around or evening. He was discharged from [facility] a couple of days ago he was discharged by Ellen to a [facility] program in [place]. However does not know beds available when he was around. Reported that he was admitted to this hospital for 1 month. He presents with bizarre behavior, and appears to be responding to internal stimuli, often making odd facial expressions and speaking in [place] tongue, word salad. Formulation/clinical reasoning: Patient is not stable even though was admitted to psychiatric hospital for 1 month prior to discharge 2 days ago, appeared to responding to internal stimuli, self dialogue, word salad, disorganized, mumbling to self. Does not make sense at times, however able to follow direction, and answer the questions appropriately if prompted. He appears to be resist to medication. He is is a poor historian. Not able to do collateral at this time as no family involved in his care, no outpatient psychiatrist, therapist. Patient will be benefit in restrictive environment for his own safety, monitor for mental status, monitor for psychosis. Start on medication- antipsychotic medication and refer patient to outpatient psychiatry services for aftercare. Hospital course: 12/19 and 12/20: Continued to be psychotic, word salad with bizarre behavior, disorganized thoughts. Discontinue Haldol his response he has a stiff neck taking this medication. We will try risperidone 1 mg twice a day to target the psychotic symptoms with plan to titrate up if he is compliant. Melatonin 6 mg at bedtime for insomnia Hydroxyzine and trazodone as needed for anxiety and insomnia. We will not provide any stimulants at this time. He has been asking at least twice for Ritalin or Adderall. 12/21: Keeping to self. attending groups. observed responding to internal stimuli. When meeting with T/W, pt speaks with various accents (Micronesian, Singaporean, Moldovan); when asked where he is originally from, pt stated, [place] . Pt proceeded to make various sounds. Patient denies any side effects from medications. He reports sleeping well. denies SI/HI/VH/AH. Continue current tx plan. 12/22/24: Patient slept well, compliant with medication. Denies side effect. Reported that he take Tylenol to get his blood flow to his heart better and for pain on his feet. Reported that he had blood transfusion a couple years ago. Not able to confirm at this time, but due to the fact that he is started on risperidone, I ordered the EKG which was within normal limit. His speech is much clear. Not using different languages during one-to-one assessment. Able to answer the other questions in clear straight Czech. Patient asked for Ritalin which he has been asking either Ritalin or Adderall daily. Thoughts are more organized, visible at times, intermittently attended groups. Discussed with him regarding risperidone dose to be increased, patient is receptive. He appears to respond well with risperidone. Risperidone increased from 1 mg b.i.d. to 2 mg b.i.d. for psychosis/disorganizes thoughts. 12/23: Active on unit. keeping to self. Patient reports feeling anxious and depressed; pt stated, I need help getting healthcare, employment and housing . Pt was educated he would have to obtain these outpatient; he expressed understanding. Patient reports sleeping well. denies SI/HI/VH/AH Continue current tx plan. 12/24/2024: Overall no changes- Will insure adequate as needed medications for anxiety Plan Patient on 15 minute checks for safety. Admitted to M3. CV. Work with treatment team to do collateral and for CSS/CCS/group home if possible for aftercare. Review lipid profile: Noted cholesterol and LDL elevated. Touch base with hospitalist to see patient needs to start on medication. Educate patient healthy diet. Reason for continued inpatient stay Substantial Risk for: rapid decompensation Time Spent With Patient Time: Total time managing care of this patient today ____ minutes.
[2024-12-24] MEDS: methADONE HCl 20 MG/2 ML ORAL.CONC 100 MG PO (08:07)
[2024-12-24] MEDS: Magnesium Hydrox/Alum Hydrox 30 ML ORAL.SUSP PO (17:18)
[2024-12-24] MEDS: Milk of Magnesia 30 ML ORAL.SUSP PO (17:18)
[2024-12-24 20:00] VITALS: BP 121/67; PULSE 91; TEMP 36.4; O2SAT 97
[2024-12-25 07:20] VITALS: BP 111/55; PULSE 73; RESP 17; TEMP 36.2; O2SAT 91
[2024-12-25] MEDS: methADONE HCl 20 MG/2 ML ORAL.CONC 100 MG PO (08:24)
--- NOTE | 2024-12-25 10:27 | P.PNPSI_ITS ---
Subjective Subjective Date of Service: 12/25/24 Reason For Visit: psychosis Interim History: Overall in milieu, engaging in groups, Ongoing focus on social security, financial stability and access to healthcare and having a mailing address. Less depression. Energy levels and anxiety have significantly improved. Sleep okay. Medication Compliance: Yes Side effects from medications: No Attending Groups: Yes Review of Systems Review of Systems unremarkable Mental Status Exam Mental Status Exam Narrative: Patient is alert and oriented; behavior is cooperative; patient is not in distress; dressed in casual attire with kempt hair-messy look but adequate hygiene; mood is described as good and affect congruent; eye contact appropriate; Speech is soft, normal rate, volume and prosody; no psychomotor agitation but observed psychomotor retardation present; thought process is less disorganized and goal directed; Thought content is WNL, no overt paranoia. Denies SI/SIB/HI Patient's insight and judgment improving. Diagnostics Vital Signs (24Hr): Vital Signs - 24 hr 12/24/24 20:00 12/25/24 07:20 Temperature 97.6 F 97.1 F Pulse Rate 91 73 Respiratory Rate 17 Blood Pressure 121/67 111/55 L Pulse Oximetry 97 91 L Oxygen Delivery Method Room Air Room Air BMI result Body Mass Index 30.2 Labs 12/17/24 13:26 12/20/24 07:53 Medications Medications Current Medications Acetaminophen (Acetaminophen 325 Mg Tablet) 975 mg PO RQ6H PRN PRN Reason: Pain, Moderate(Pain Scale 4-6) Last Admin: 12/25/24 09:13 Dose: 975 mg Al Hydroxide/Mg Hydroxide (Magnesium Hydrox/Alum Hydrox 30 Ml Oral.Susp) 30 ml PO Q6H PRN PRN Reason: Heartburn/Nausea Last Admin: 12/24/24 17:18 Dose: 30 ml Diphenhydramine HCl (Diphenhydramine Hcl 25 Mg Capsule) 50 mg PO Q6H PRN PRN Reason: Itching Last Admin: 12/24/24 19:51 Dose: 50 mg Docusate Sodium (Docusate Sodium 100 Mg Capsule) 100 mg PO BID ALIE Last Admin: 12/25/24 09:01 Dose: 100 mg Hydroxyzine HCl (Hydroxyzine Hcl 50 Mg Tablet) 50 mg PO Q6H PRN PRN Reason: mild anxiety Magnesium Hydroxide (Milk Of Magnesia 30 Ml Oral.Susp) 30 ml PO DAILY PRN PRN Reason: Constipation Last Admin: 12/24/24 17:18 Dose: 30 ml Melatonin (Melatonin 3 Mg Tablet) 6 mg PO BEDTIME [facility] Last Admin: 12/24/24 20:16 Dose: 6 mg Methadone HCl (Methadone Hcl 20 Mg/2 Ml Oral.Conc) 100 mg PO DAILY@0800 [facility] Last Admin: 12/25/24 08:24 Dose: 100 mg Nicotine (Nicotine 21 Mg Patch.Td24) 21 mg TRANSDERMA DAILY PRN PRN Reason: nicotine craving Nicotine Polacrilex (Nicotine Polacrilex 2 Mg Gum) 2 mg BUCCAL Q2H PRN PRN Reason: Nicotine Cravings Risperidone (Risperidone 2 Mg Tablet) 2 mg PO BID [facility] Last Admin: 12/25/24 09:01 Dose: 2 mg Risperidone (Risperidone 0.5 Mg Tablet) 0.5 mg PO Q6H PRN PRN Reason: agitation Last Admin: 12/24/24 16:23 Dose: 0.5 mg Senna (Sennosides 8.6 Mg Tablet) 8.6 mg PO DAILY PRN PRN Reason: Constipation Last Admin: 12/21/24 21:27 Dose: 8.6 mg Trazodone HCl (Trazodone Hcl 50 Mg Tablet) 50 mg PO BEDTIME MRX1 PRN PRN Reason: Insomnia Allergies Allergies Allergy/AdvReac Type Severity Reaction Status Date / Time bupropion (From Wellbutrin) AdvReac Agitated Verified 12/17/24 11:20 haloperidol (From Haldol) AdvReac Muscle Verified 12/19/24 23:14 cramps olanzapine (From Zyprexa) AdvReac Agitated Verified 12/17/24 11:20 Assessment & Plan Assessment & Plan (1) Acute psychosis: Status: Acute Code(s): F23 - Brief psychotic disorder (2) Suicidal ideation: Status: Acute Code(s): R45.851 - Suicidal ideations Plan HPI: Patient is a 34 years old male who was BIBA by [facility] due to primary complain about leg pain due to walking around or evening. He was discharged from [facility] a couple of days ago he was discharged by Lyft to a [facility] program in [place]. However does not know beds available when he was around. Reported that he was admitted to this hospital for 1 month. He presents with bizarre behavior, and appears to be responding to internal stimuli, often making odd facial expressions and speaking in Telugu tongue, word salad. Formulation/clinical reasoning: Patient is not stable even though was admitted to psychiatric hospital for 1 month prior to discharge 2 days ago, appeared to responding to internal stimuli, self dialogue, word salad, disorganized, mumbling to self. Does not make sense at times, however able to follow direction, and answer the questions appropriately if prompted. He appears to be resist to medication. He is is a poor historian. Not able to do collateral at this time as no family involved in his care, no outpatient psychiatrist, therapist. Patient will be benefit in restrictive environment for his own safety, monitor for mental status, monitor for psychosis. Start on medication- antipsychotic medication and refer patient to outpatient psychiatry services for aftercare. Hospital course: 12/19 and 12/20: Continued to be psychotic, word salad with bizarre behavior, disorganized thoughts. Discontinue Haldol his response he has a stiff neck taking this medication. We will try risperidone 1 mg twice a day to target the psychotic symptoms with plan to titrate up if he is compliant. Melatonin 6 mg at bedtime for insomnia Hydroxyzine and trazodone as needed for anxiety and insomnia. We will not provide any stimulants at this time. He has been asking at least twice for Ritalin or Adderall. 12/21: Keeping to self. attending groups. observed responding to internal stimuli. When meeting with T/W, pt speaks with various accents (Russian, Ethiopian, Swedish); when asked where he is originally from, pt stated, [place] . Pt proceeded to make various sounds. Patient denies any side effects from medications. He reports sleeping well. denies SI/HI/VH/AH. Continue current tx plan. 12/22/24: Patient slept well, compliant with medication. Denies side effect. Reported that he take Tylenol to get his blood flow to his heart better and for pain on his feet. Reported that he had blood transfusion a couple years ago. Not able to confirm at this time, but due to the fact that he is started on risperidone, I ordered the EKG which was within normal limit. His speech is much clear. Not using different languages during one-to-one assessment. Able to answer the other questions in clear straight Sen[place]e. Patient asked for Ritalin which he has been asking either Ritalin or Adderall daily. Thoughts are more organized, visible at times, intermittently attended groups. Discussed with him regarding risperidone dose to be increased, patient is receptive. He appears to respond well with risperidone. Risperidone increased from 1 mg b.i.d. to 2 mg b.i.d. for psychosis/disorganizes thoughts. 12/23: Active on unit. keeping to self. Patient reports feeling anxious and depressed; pt stated, I need help getting healthcare, employment and housing . Pt was educated he would have to obtain these outpatient; he expressed understanding. Patient reports sleeping well. denies SI/HI/VH/AH Continue current tx plan. 12/24/2024: Overall no changes- Will insure adequate as needed medications for anxiety 12/25: Was asking about Ritalin and redirected to discuss same with primary team after the weekend Plan Patient on 15 minute checks for safety. Admitted to [facility]. CV. Work with treatment team to do collateral and for CSS/CCS/fpc if possible for aftercare. Review lipid profile: Noted cholesterol and LDL elevated. Touch base with hospitalist to see patient needs to start on medication. Educate patient healthy diet. Reason for continued inpatient stay Substantial Risk for: rapid decompensation Time Spent With Patient Time: Total time managing care of this patient today ____ minutes.
[2024-12-25] MEDS: Magnesium Hydrox/Alum Hydrox 30 ML ORAL.SUSP PO (14:16)
[2024-12-25 20:00] VITALS: BP 133/64; PULSE 88; RESP 18; TEMP 36.3; O2SAT 96
[2024-12-26 07:48] VITALS: BP 89/49; PULSE 59; RESP 16; TEMP 36.1; O2SAT 95
[2024-12-26] MEDS: methADONE HCl 20 MG/2 ML ORAL.CONC 100 MG PO (08:11)
[2024-12-26] MEDS: guanFACINE HCl ER 1 MG TAB.ER.24H PO (11:03)
--- NOTE | 2024-12-26 12:54 | P.PNPSI_ITS ---
Subjective Subjective Date of Service: 12/26/24 Reason For Visit: psychosis Subjective Notes: Conditional Voluntary Healthcare Proxy: No Guardianship: No Medical Problems Affecting Mental Status: No Interim History: Medical record and nursing notes reviewed; case discussed during rounds with team/nursing staff, and met with patient for supportive therapy/psychoeducation, as well as medication management. Patient slept for 8 hours, no issue with bowel movement, but report mild constipation, compliant with medication, no side effects. report low enery and poor concentration. He found himself clearer and risperidone is working. Report [facility] lost his belonging. Report he also applied the application for housing while were at [facility] but not sure any update as he does not have his cell phone. Mood is comfortable now. Denies safety concerns. He is receptive with medication plan. Denies safety concerns. Medication Compliance: Yes Side effects from medications: No Attending Groups: Intermittent Review of Systems Acute medical concerns: No Medical Review of Systems: unchanged Review of Systems Review of Systems Constitutional: Denies fatigue and Denies fever(s) Cardiovascular: Denies chest pain and Denies dyspnea Respiratory: Denies dyspnea Gastrointestinal: Denies abdominal pain Psychiatric: denies suicidal ideation Endocrine: Denies fatigue Yes all other systems are reviewed and are negative Mental Status Exam Mental Status Exam Narrative: Patient is alert and oriented; behavior is cooperative; patient is not in distress; dressed in casual attire with kempt hair-messy look but adequate hygiene; mood is described as good and affect congruent; eye contact appropriate; Speech is soft, normal rate, volume and prosody; no psychomotor agitation/ retardation present; thought process is less disorganized and goal directed; Thought content is WNL, no overt paranoia. Denies SI/SIB/HI Patient's insight and judgment improving. Diagnostics Vital Signs (24Hr): Vital Signs - 24 hr 12/25/24 20:00 12/26/24 07:48 Temperature 97.4 F 97.0 F Pulse Rate 88 59 Respiratory Rate 18 16 Blood Pressure 133/64 89/49 L Pulse Oximetry 96 95 Oxygen Delivery Method Room Air Room Air BMI result Body Mass Index 30.2 Labs 12/17/24 13:26 12/20/24 07:53 Medications Medications Current Medications Acetaminophen (Acetaminophen 325 Mg Tablet) 975 mg PO RQ6H PRN PRN Reason: Pain, Moderate(Pain Scale 4-6) Last Admin: 12/26/24 08:49 Dose: 975 mg Al Hydroxide/Mg Hydroxide (Magnesium Hydrox/Alum Hydrox 30 Ml Oral.Susp) 30 ml PO Q6H PRN PRN Reason: Heartburn/Nausea Last Admin: 12/25/24 14:16 Dose: 30 ml Diphenhydramine HCl (Diphenhydramine Hcl 25 Mg Capsule) 50 mg PO Q6H PRN PRN Reason: Itching Last Admin: 12/25/24 10:34 Dose: 50 mg Docusate Sodium (Docusate Sodium 100 Mg Capsule) 100 mg PO BID [facility] Last Admin: 12/26/24 08:34 Dose: 100 mg Guanfacine HCl (Guanfacine Hcl Er 1 Mg Tab.Er.24h) 1 mg PO DAILY [facility] Last Admin: 12/26/24 11:03 Dose: 1 mg Hydroxyzine HCl (Hydroxyzine Hcl 50 Mg Tablet) 50 mg PO Q6H PRN PRN Reason: mild anxiety Last Admin: 12/25/24 14:16 Dose: 50 mg Magnesium Hydroxide (Milk Of Magnesia 30 Ml Oral.Susp) 30 ml PO DAILY PRN PRN Reason: Constipation Last Admin: 12/24/24 17:18 Dose: 30 ml Melatonin (Melatonin 3 Mg Tablet) 6 mg PO BEDTIME [facility] Last Admin: 12/25/24 20:19 Dose: 6 mg Methadone HCl (Methadone Hcl 20 Mg/2 Ml Oral.Conc) 100 mg PO DAILY@0800 [facility] Last Admin: 12/26/24 08:11 Dose: 100 mg Nicotine (Nicotine 21 Mg Patch.Td24) 21 mg TRANSDERMA DAILY PRN PRN Reason: nicotine craving Nicotine Polacrilex (Nicotine Polacrilex 2 Mg Gum) 2 mg BUCCAL Q2H PRN PRN Reason: Nicotine Cravings Risperidone (Risperidone 0.5 Mg Tablet) 0.5 mg PO Q6H PRN PRN Reason: agitation Last Admin: 12/24/24 16:23 Dose: 0.5 mg Risperidone (Risperidone 2 Mg Tablet) 2 mg PO DAILY ALIE Risperidone (Risperidone 2 Mg Tablet) 4 mg PO BEDTIME [facility] Senna (Sennosides 8.6 Mg Tablet) 8.6 mg PO DAILY PRN PRN Reason: Constipation Last Admin: 12/25/24 14:16 Dose: 8.6 mg Trazodone HCl (Trazodone Hcl 50 Mg Tablet) 50 mg PO BEDTIME MRX1 PRN PRN Reason: Insomnia Allergies Allergies Allergy/AdvReac Type Severity Reaction Status Date / Time bupropion (From Wellbutrin) AdvReac Agitated Verified 12/17/24 11:20 haloperidol (From Haldol) AdvReac Muscle Verified 12/19/24 23:14 cramps olanzapine (From Zyprexa) AdvReac Agitated Verified 12/17/24 11:20 Assessment & Plan Assessment & Plan (1) Acute psychosis: Status: Acute Code(s): F23 - Brief psychotic disorder (2) Suicidal ideation: Status: Acute Code(s): R45.851 - Suicidal ideations Plan HPI: Patient is a 34 years old male who was BIBA by [facility] due to primary complain about leg pain due to walking around or evening. He was discharged from [facility] a couple of days ago he was discharged by Lyft to a [facility] program in [place]. However does not know beds available when he was around. Reported that he was admitted to this hospital for 1 month. He presents with bizarre behavior, and appears to be responding to internal stimuli, often making odd facial expressions and speaking in Hannah tongue, word salad. Formulation/clinical reasoning: Patient is not stable even though was admitted to psychiatric hospital for 1 month prior to discharge 2 days ago, appeared to responding to internal stimuli, self dialogue, word salad, disorganized, mumbling to self. Does not make sense at times, however able to follow direction, and answer the questions appropriately if prompted. He appears to be resist to medication. He is is a poor historian. Not able to do collateral at this time as no family involved in his care, no outpatient psychiatrist, therapist. Patient will be benefit in restrictive environment for his own safety, monitor for mental status, monitor for psychosis. Start on medication- antipsychotic medication and refer patient to outpatient psychiatry services for aftercare. Hospital course: 12/19 and 12/20: Continued to be psychotic, word salad with bizarre behavior, disorganized thoughts. Discontinue Haldol his response he has a stiff neck taking this medication. We will try risperidone 1 mg twice a day to target the psychotic symptoms with plan to titrate up if he is compliant. Melatonin 6 mg at bedtime for insomnia Hydroxyzine and trazodone as needed for anxiety and insomnia. We will not provide any stimulants at this time. He has been asking at least twice for Ritalin or Adderall. 12/21: Keeping to self. attending groups. observed responding to internal stimuli. When meeting with T/W, pt speaks with various accents (South Korean, Malay, Malay); when asked where he is originally from, pt stated, [place] . Pt proceeded to make various sounds. Patient denies any side effects from medications. He reports sleeping well. denies SI/HI/VH/AH. Continue current tx plan. 12/22/24: Patient slept well, compliant with medication. Denies side effect. Reported that he take Tylenol to get his blood flow to his heart better and for pain on his feet. Reported that he had blood transfusion a couple years ago. Not able to confirm at this time, but due to the fact that he is started on risperidone, I ordered the EKG which was within normal limit. His speech is much clear. Not using different languages during one-to-one assessment. Able to answer the other questions in clear straight Bulgarian. Patient asked for Ritalin which he has been asking either Ritalin or Adderall daily. Thoughts are more organized, visible at times, intermittently attended groups. Discussed with him regarding risperidone dose to be increased, patient is receptive. He appears to respond well with risperidone. Risperidone increased from 1 mg b.i.d. to 2 mg b.i.d. for psychosis/disorganizes thoughts. 12/23: Active on unit. keeping to self. Patient reports feeling anxious and depressed; pt stated, I need help getting healthcare, employment and housing . Pt was educated he would have to obtain these outpatient; he expressed understanding. Patient reports sleeping well. denies SI/HI/VH/AH Continue current tx plan. 12/24/2024: Overall no changes- Will insure adequate as needed medications for anxiety 12/25: Was asking about Ritalin and redirected to discuss same with primary team after the weekend 12/26/24: report low enery and poor concentration. Denies side effects. He found himself clearer and risperidone is working. Report [facility] lost his belonging. Report he also applied the application for housing while were at [facility] but not sure any update as he does not have his cell phone. Mood is comfortable now. Denies safety concerns. He is receptive with medication plan Intunive ER 1mg daily for ADHD Increase Risperidone up to 6mg daily in devided dose for disorganized thought which has seen some effective with lower dose. SW gave patient [facility] number to call looking for his belonging and to see if he has any update regarding housing application. Mucinex 1 tab b.i.d. p.r.n. for cough. Plan Patient on 15 minute checks for safety. Admitted to [facility]. CV. Work with treatment team to do collateral and for CSS/CCS/prison if possible for aftercare. Review lipid profile: Noted cholesterol and LDL elevated. Touch base with hospitalist to see patient needs to start on medication. Educate patient healthy diet. Patient educated on: diagnosis, medication risk/benefits and therapeutic strategies Informed Consent: understands and further education needed Reason for continued inpatient stay Substantial Risk for: med/psych decompensation Time Spent With Patient Time: Total time managing care of this patient today ____ minutes.
[2024-12-26] MEDS: Magnesium Hydrox/Alum Hydrox 30 ML ORAL.SUSP PO (13:01)
[2024-12-26 20:00] VITALS: BP 124/64; PULSE 79; RESP 16; TEMP 36.7; O2SAT 95
[2024-12-26] MEDS: guaiFENesin DM 600/30 1 TAB TAB.ER.12H PO (20:02)
[2024-12-27 07:58] VITALS: BP 109/55; PULSE 54; RESP 18; TEMP 36.5; O2SAT 97
[2024-12-27] MEDS: methADONE HCl 20 MG/2 ML ORAL.CONC 100 MG PO ×2 (08:15→08:36)
[2024-12-27] MEDS: guanFACINE HCl ER 1 MG TAB.ER.24H PO (08:20)
[2024-12-27] MEDS: guaiFENesin DM 600/30 1 TAB TAB.ER.12H PO ×2 (15:08→20:34)
[2024-12-27 20:20] VITALS: BP 118/65; PULSE 78; RESP 16; TEMP 36.3; O2SAT 99
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
[2024-12-28 07:48] VITALS: BP 103/54; PULSE 58; RESP 16; TEMP 36.4; O2SAT 95
[2024-12-28] MEDS: methADONE HCl 20 MG/2 ML ORAL.CONC 100 MG PO (08:16)
[2024-12-28] MEDS: guanFACINE HCl ER 1 MG TAB.ER.24H PO ×2 (09:03→11:06)
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
[2024-12-28] MEDS: Milk of Magnesia 30 ML ORAL.SUSP PO (11:58)
[2024-12-28] MEDS: guaiFENesin DM 600/30 1 TAB TAB.ER.12H PO (13:22)
[2024-12-28] MEDS: Magnesium Hydrox/Alum Hydrox 30 ML ORAL.SUSP PO (15:07)
[2024-12-28 20:00] VITALS: BP 126/69; PULSE 75; RESP 16; TEMP 36.9; O2SAT 97
[2024-12-29 07:00] VITALS: BMI 31.7
[2024-12-29] MEDS: methADONE HCl 20 MG/2 ML ORAL.CONC 100 MG PO (07:38)
[2024-12-29 07:39] VITALS: BP 112/59; PULSE 60; RESP 18; TEMP 36.3; O2SAT 97
[2024-12-29] MEDS: guanFACINE HCl ER 2 MG TAB.ER.24H PO (08:36)
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
[2024-12-29 20:00] VITALS: BP 103/60; PULSE 73; RESP 16; TEMP 36.2; O2SAT 96
[2024-12-30 07:30] VITALS: BP 105/55; PULSE 55; RESP 17; TEMP 36.3; O2SAT 97
[2024-12-30] MEDS: methADONE HCl 20 MG/2 ML ORAL.CONC 100 MG PO (08:08)
[2024-12-30] MEDS: guanFACINE HCl ER 2 MG TAB.ER.24H PO (08:08)
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
[2024-12-30] MEDS: guaiFENesin DM 600/30 1 TAB TAB.ER.12H PO (09:58)
== END 2024-12-30 10:35 | disposition home or self-care (01) | DRG 751 ==
LOC: HO.ED 15:52 → HO.PADLT16 12-19 14:48
PROVIDERS: Physician Assistant; Admitting Provider Nurse Practitioner Psychiatric/Mental Health; Emergency Provider Emergency Medicine; Visit Provider Nurse Practitioner Psychiatric/Mental Health
DX: F23 Brief psychotic disorder (principal); R45.851 Suicidal ideations; F17.210 Nicotine dependence, cigarettes, uncomplicated; Z59.02 Unsheltered homelessness; Z71.6 Tobacco abuse counseling; Z79.899 Other long term (current) drug therapy
CPT/HCPCS: 36415; 80053; 80061; 80307; 81003; 82550; 83036; 83735; 84439; 84443; 85025; 93005; 99285; S9485

== ENCOUNTER 2024-12-19 14:23 | Outpatient (BNV) | payer OTHER, SELFPAY | END 2024-12-22 14:41 | PROVIDERS: Admitting Provider Nurse Practitioner Psychiatric/Mental Health; Emergency Provider Emergency Medicine; Visit Provider Internal Medicine Cardiovascular Disease | DX: Z13.6 Encounter for screening for cardiovascular disorders (principal) | CPT/HCPCS: 93010 ==

== ENCOUNTER → 2024-12-19 14:23 | Outpatient (BNV) | payer OTHER, SELFPAY | PROVIDERS: Admitting Provider Nurse Practitioner Psychiatric/Mental Health; Emergency Provider Emergency Medicine; Visit Provider Nurse Practitioner Psychiatric/Mental Health | DX: F23 Brief psychotic disorder (principal); R45.851 Suicidal ideations | CPT/HCPCS: 99231; 99232 ==